=== PATIENT | male | born 1965 | race Caucasian/White ===

== ENCOUNTER 2019-06-22 08:53 | Emergency (ER) | payer MEDICAID ==
[~2019-06-22] VITALS: Ht 175.3 cm; Wt 77.3 kg
[2019-06-22 08:57] VITALS: Ht 175.3 cm; Wt 77.3 kg
[2019-06-22] MEDS ORDERED: HYDROCODONE-A1 UDTA2 PO (09:37)
[2019-06-22 09:56] VITALS: BP 150/86
== END 2019-06-22 09:57 | disposition home or self-care (01) ==
LOC: D.ER 08:53
DX: S92.311A Displaced fracture of first metatarsal bone, right foot, initial encounter for closed fracture (principal); S92.341A Displaced fracture of fourth metatarsal bone, right foot, initial encounter for closed fracture; W23.0XXA Caught, crushed, jammed, or pinched between moving objects, initial encounter